=== PATIENT | male | born 1970 | race Caucasian/White ===

== ENCOUNTER 2017-01-16 06:55 | Day surgery (SDC) | payer OTHER ==
[~2017-01-16] VITALS: Ht 177.8 cm; Wt 131.5 kg
--- NOTE | 2017-01-16 10:36 | NUR ---
01/16/17 1035 Sarah Black 1028-PATIENT ARRIVED TO PACU ON 4L OM O2 SAT 96% AWAKE. SR. 1035-PATIENT AWAKE DENIES PAIN OR NAUSEA. DRESSING TO COCCYX CDI. DROWSY.
[2017-01-16] MEDS ORDERED: HYDROMORPHONE HC4 MG PO (10:40)
[2017-01-16] MEDS ORDERED: IBUPROFEN600 MG PO (10:40)
--- NOTE | 2017-01-16 11:05 | NUR ---
PT IS BACK TO DS FROM PACU. PT IS AWAKE AND TOLERATING SIPS OF WATER WELL. IS AT THE BEDSIE. CALL LIGHT WITHIN REACH. NO OTHER C/O'S AT THIS TIME. REQUESTING MORE WATER. WILL REASSESS WITHIN THE HOUR. PT EDUCATED ON CALLING FOR HELP SHOULD HE NEED TO USE THE RESTROOM.
--- NOTE | 2017-01-16 11:39 | NUR ---
PT IS UP OOB TO THE BATHROOM. STANDBY ASSIST, NO NAUSEA OR DIZZINESS.
--- NOTE | 2017-01-16 11:44 | NUR ---
PT REPORTS THAT HE WAS UNABLE TO URINATE. HE IS GIVEN MORE WATER. DENIES NEEDING ANYTHING TO EAT.
--- NOTE | 2017-01-20 08:06 | OR ---
[facility] [address] [place], [place] [address] Signed DATE OF OPERATION: 01/16/2017 SURGEON: Tiffanie Gore MD PREOPERATIVE DIAGNOSIS: Recurrent pilonidal abscess, chronic pain. POSTOPERATIVE DIAGNOSIS: Recurrent pilonidal abscess, chronic pain. PROCEDURE: Excision of pilonidal tissue with open packing. SURGEON: Tiffanie Gore MD ANESTHESIA: Saddle block with intravenous sedation. Deny Flores CRNA Local 30 mL 0.25% Marcaine with epinephrine. INDICATION: This 46-year-old white man, who underwent incision and drainage of a pilonidal abscess while in high school. Over the years, he has had episodes of pain in the internatal cleft consistent with persistent pilonidal disease. In recent months, he has had recurrent pain and occasions of draining particularly when sitting for prolonged periods for example on long drives. He was seen several months ago, and consideration was made for definitive treatment. 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 I saw him recently and he appears to have no sign of abscess or drainage at this time, but does have at least three distinct pilonidal sinuses in the internatal cleft. Various methods of management have been reviewed with him. I have recommended excision of the pilonidal tissue with complete removal of the disease and open packing as a treatment plan. The risks of bleeding, infection, recurrence and so forth were reviewed in detail. He understands and wished to proceed. FINDINGS: None of the sinuses were connected to an abscess at this time. All were excised Electronically Signed By: TIFFANIE GORE MD 01/20/17 0806 PATIENT NAME: SANTI DE GUZMAN OPERATIVE REPORT DATE OF : 68 PHYSICIAN: TIFFANIE GORE MD REPORT #: [id number] REPORT IS CONFIDENTIAL AND NOT TO BE RELEASED WITHOUT AUTHORIZATION [facility] [address] [place], [place] [address] Signed incontinuity with a minimizing of tissue excision in the internatal cleft. Open packing was undertaken with single ply gauze. DESCRIPTION OF PROCEDURE: The patient was brought to the operating room, after undergoing saddle block anesthetic in the preanesthesia area. Preoperative antibiotic, cefoxitin was given. He is placed in a prone ada-knife position and buttocks taped apart and the area prepared with a chlorhexidine solution and draped sterilely. Probing of the pilonidal sinuses did not show them to connect to an active abscess at this time. Minimizing excision with a 15 blade, elliptical excision was undertaken in the internatal cleft incorporating the three sinuses together. Dissection was carried through the dermis sharply and through the subcutaneous tissue similarly as deep as pilonidal tissue seemed to go. Once completely excised, hemostasis was assured with electrocautery. The wound was infiltrated with 30 mL of 0.25% Marcaine with epinephrine. Single ply gauze packing was applied. He was returned to the supine position and ultimately taken to recovery room in good condition. Blood loss was minimal. MD FLORENTINO Stark/OSEI /[id number] cc: Robbie Hunter DO Electronically Signed By: TIFFANIE GORE MD 01/20/17 0806 PATIENT NAME: SANTI DE GUZMAN OPERATIVE REPORT DATE OF : 68 PHYSICIAN: TIFFANIE GORE MD REPORT #: [id number] REPORT IS CONFIDENTIAL AND NOT TO BE RELEASED WITHOUT AUTHORIZATION
== END 2017-01-16 12:15 | disposition home or self-care (01) ==
LOC: DS 06:55
PROVIDERS: Surgery
PROC: 0HB8XZZ Excision of Buttock Skin, External Approach (ICD-10-PCS; principal; 2017-01-16 08:45)
DX: L05.01 Pilonidal cyst with abscess (principal); Z88.8 Allergy status to other drugs, medicaments and biological substances; Z90.89 Acquired absence of other organs; Z79.899 Other long term (current) drug therapy
CPT/HCPCS: 00300; J0694; J2250; J2704; J3010; J7120

== ENCOUNTER 2019-10-29 06:45 | Day surgery (SDC) | payer OTHER ==
[~2019-10-29] VITALS: Ht 177.8 cm; Wt 130.6 kg
[~2019-10-29 06:45] MED LIST: HYDROMORPHONE HC4 MG PO; IBUPROFEN600 MG PO
--- NOTE | 2019-10-29 08:46 | NUR ---
10/29/19 0846 Trudy Sow 0872 PATIENT ARRIVES TO PACU AWAKE AND TALKING, ANSWERS QUESTIONS APPROPRIATELY. RESP EVEN AND UNLABORED, NC AT 3 LITERS. DENIES PAIN OR NAUSEA. TAKING SIPS OF WATER.
--- NOTE | 2019-10-29 12:28 | NUR ---
PT ALERT ORIENTED AND HERE TO HAVE SCOPE BECAUSE OF FAMILY HISTORY. PREP WAS A CHALLENGE, PT HAS GOOD ATTITUDE. REQUESTED PRAYER, WILL FOLLOW
--- NOTE | 2019-11-02 12:12 | PATH ---
[facility] [address] [place], [place] [address] Signed SPECIMEN(S): A ILEOCECAL VALVE SPECIMEN(S): B TRANSVERSE POLYP SPECIMEN SOURCE: A. ILEOCECAL VALVE B. TRANSVERSE POLYP CLINICAL HISTORY: Family hx colon ca, hx hemorrhoids. MICROSCOPIC DESCRIPTION: Histologic sections of all submitted blocks are examined by light microscopy. These findings, together with the gross examination, support the pathologic diagnosis. FINAL PATHOLOGIC DIAGNOSIS: A. Colon, ileocecal valve, biopsy: - Fragments of ileal mucosa with focal minimal active inflammation. - Negative for ulcerations or granulomas. - Negative for dysplasia or malignancy. B. Colon, transverse, polyp, polypectomy: - Fragments of tubular adenoma. - Negative for high-grade dysplasia or malignancy. NAL:cml:C2NR GROSS DESCRIPTION: Two specimens are received in two containers, labeled "Earle, Santi." A. The specimen, labeled "Homajarett, Santi, 1," and designated on the requisition "ileocecal valve," is received in formalin and consists of three bassett soft tissue fragment(s) that measure 0.2-0.3 cm in greatest dimension. The specimen is entirely submitted in cassette (A1). B. The specimen, labeled "Earle, Santi, 2," and designated on the requisition "transverse polyp," is received in formalin and consists of four bassett soft tissue fragment(s) that measure 0.2-0.3 cm in greatest dimension. The specimen is entirely submitted in cassette (B1). FB (under the direct supervision of a pathologist) The Gross Description was prepared using a voice recognition system. The report was reviewed for accuracy; however, sound-alike word errors, addition and/or deletions may occur. If there is any question about this report, please contact Client Services. PERFORMING LABORATORY: PATIENT NAME: SANTI DE GUZMAN PATHOLOGY DATE OF : 68 REPORT #: [id number] PHYSICIAN: KAIDEN ALEXANDER PCP: KRYSTAL SANCHEZ PA-C REPORT IS CONFIDENTIAL AND NOT TO BE RELEASED WITHOUT AUTHORIZATION [facility] [address] [place], [place] [address] Signed The technical component was performed by [facility], [address] [place] [address] (Health Researcher: Gabbie Castro MD; CLIA# [id number]). Professional interpretation was performed by [facility], [address] [address] (CLIA# [id number]). Diagnostician: Laila Pena MD Pathologist Electronically Signed 11/02/2019 Copies: ~ PATIENT NAME: SANTI DE GUZMAN PATHOLOGY DATE OF : 68 REPORT #: [id number] PHYSICIAN: KAIDEN PATHOLOGY PCP: KRYSTAL SANCHEZ PA-C REPORT IS CONFIDENTIAL AND NOT TO BE RELEASED WITHOUT AUTHORIZATION
--- NOTE | 2019-11-02 18:28 | OR ---
[facility] [address] [place], [place] [address] Signed DATE OF OPERATION: 10/29/2019 SURGEON: Tiffanie Gore MD PREOPERATIVE DIAGNOSIS: Family history of colon cancer (father). POSTOPERATIVE DIAGNOSIS: Polyp of left transverse colon x1 and questionable adenomatous change of ileocecal valve. PROCEDURE: Total colonoscopy to cecum with biopsy of ileocecal valve and cold morcellation excision of polyp of left transverse colon. ANESTHESIA: Intravenous sedation, fentanyl 100 mcg and Versed 4 mg. INDICATIONS: This 49-year-old white man is a patient of Dr. Rangel previously, more recently Vanessa Alexis PA-C. He underwent colonoscopy in 2014, which was normal. He does have family history of colon cancer in his father, who of the disease. He is admitted at this time to undergo colonoscopy. He understands the risks of bleeding, infection, and perforation. FINDINGS: The prep was excellent. Complete colonoscopy was undertaken of the cecum. There was a small polyp of the left transverse colon, which was excised completely. The mucosa of the ileocecal valve appeared adenomatous without specific polypoid appearance. This was mostly biopsied to assess for adenomatous change. There were no other findings of concern. DESCRIPTION OF PROCEDURE: The patient was brought to the endoscopy suite and placed in lateral decubitus position, given intravenous sedation to the point of slurred speech and nystagmus. Digital rectal examination was normal. An Olympus video colonoscope was passed into the rectum and manipulated throughout the colon, ultimately intubating the cecum itself. Close inspection of the ileocecal valve showed a somewhat adenomatous-appearing mucosa; however, there was no specific adenoma proper. This was multiply biopsied. The scope was then withdrawn and remaining colon Electronically Signed By: TIFFANIE GORE MD 11/02/19 1828 PATIENT NAME: SANTI DE GUZMAN OPERATIVE REPORT DATE OF : 68 REPORT #: [id number] PHYSICIAN: TIFFANIE GORE MD PCP: VANESSA ALEXIS PA-C REPORT IS CONFIDENTIAL AND NOT TO BE RELEASED WITHOUT AUTHORIZATION [facility] [address] [place], [place] [address] Signed was examined, ultimately showing a small polyp in the left transverse colon. This was excised with cold morcellation technique. Further withdrawal of scope showed no other abnormality. Retroflexed view was normal. Scope was removed, then the patient was taken to the recovery room in good condition. CONCLUDING DIAGNOSIS: Small polyp, left transverse colon, questionable adenomatous change of ileocecal valve. PLAN: Recommend repeat colonoscopy in 5 years or sooner if symptoms should occur. If the ileocecal valve does show adenomatous change much sooner, colonoscopy would be advised. MD FLORENTINO Stark/OSEI /[id number] cc: DO Vanessa Vela PA-C Copies: YAMILETH RANGEL CHLOE K PA-C ~ Electronically Signed By: TIFFANIE GORE MD 11/02/19 1828 PATIENT NAME: SANTI DE GUZMAN OPERATIVE REPORT DATE OF : 68 REPORT #: [id number] PHYSICIAN: TIFFANIE GORE MD PCP: VANESSA ALEXIS PA-C REPORT IS CONFIDENTIAL AND NOT TO BE RELEASED WITHOUT AUTHORIZATION
== END 2019-10-29 09:15 | disposition home or self-care (01) ==
LOC: DS 06:45 → OPS 06:45 → DS 08:00 → OPS 09:15
PROVIDERS: Surgery
PROC: 0DBL8ZZ Excision of Transverse Colon, Via Natural or Artificial Opening Endoscopic (ICD-10-PCS; 2019-10-29)
PROC: 0DBC8ZX Excision of Ileocecal Valve, Via Natural or Artificial Opening Endoscopic, Diagnostic (ICD-10-PCS; principal; 2019-10-29 08:00)
DX: Z12.11 Encounter for screening for malignant neoplasm of colon (principal); D12.3 Benign neoplasm of transverse colon; K52.9 Noninfective gastroenteritis and colitis, unspecified; Z80.0 Family history of malignant neoplasm of digestive organs; Z88.5 Allergy status to narcotic agent
CPT/HCPCS: 99153; G0500; J2250; J3010; J7121

== ENCOUNTER 2024-10-25 06:20 | Day surgery (SDC) | payer OTHER ==
[~2024-10-25] VITALS: Ht 177.8 cm; Wt 125.4 kg
[~2024-10-25 06:20] MED LIST changes: +MIDAZOLAM HCL 5 MG/5 ML VIAL IV PRN; +fentaNYL citrate 100 MCG/2 ML VIAL IV PRN
[2024-10-25] MEDS ORDERED: BEET ROOT-TART1 EACH PO (06:34)
[2024-10-25] MEDS ORDERED: fentaNYL citrate 100 MCG/2 ML VIAL ONE (06:42)
[2024-10-25] MEDS ORDERED: MIDAZOLAM HCL 5 MG/5 ML VIAL ONE (06:42)
[2024-10-25 06:44] VITALS: BP 144/90
[2024-10-25] MEDS ORDERED: LACTATED RINGER'S 1,000 ML IV SCH (07:00)
[2024-10-25] MEDS ORDERED: IBLOOD GLUCOSE TEST STRIP 1 EA TEST VI PRN (07:00)
[2024-10-25] MEDS ORDERED: LIDOCAINE HCL 1% 5 ML SDV INJ ONE (07:00)
--- NOTE | 2024-10-25 08:17 | NUR ---
10/25/[address] PRESENTS TO THE BEDSIDE AND IS SPEAKING WITH PATIENT. PATIENT'S QUESTIONS ARE ANSWERED.
[2024-10-25 08:31] VITALS: BP 143/100
--- NOTE | 2024-10-26 11:33 | OR ---
[facility] [address] [place], [place] [address] Signed DATE OF OPERATION: 10/25/2024 SURGEON: Tiffanie Gore MD PREOPERATIVE DIAGNOSIS: Family history of colon cancer (father). POSTOPERATIVE DIAGNOSIS: Normal colon to cecum. PROCEDURE: Total colonoscopy to cecum. ANESTHESIA: Intravenous sedation, fentanyl 100 mcg, and Versed 5 mg. INDICATION: This 54-year-old white man is a patient Dr. Marla Flores. He has family history of colon cancer in his father who is now . His last colonoscopy was in 2019. He has no current symptoms of bleeding, diarrhea, or constipation. He is admitted at this time to undergo surveillance colonoscopy. He understands the risk of bleeding, infection, and perforation. FINDINGS: The prep was excellent. Complete colonoscopy was undertaken to the cecum with full intubation of the cecum. There was no evidence of polyps, diverticular formation, colitis, or cancer. DESCRIPTION OF PROCEDURE: The patient was brought to the endoscopy suite and placed in lateral decubitus position, given intravenous sedation to the point of slurred speech and nystagmus. Digital rectal examination was normal. An Olympus video colonoscope was passed in the rectum and manipulated throughout the colon ultimately intubating the cecum itself. The ileocecal valve and appendiceal orifice were normal. The scope was withdrawn from that point. Examination throughout showed no sign of abnormality specifically no polyps, diverticular formation, colitis, or cancer. Retroflexed view of the rectum was normal. The scope was removed. The patient was taken to the recovery room in good condition. Electronically Signed By: TIFFANIE GORE MD 10/26/24 1133 PATIENT NAME: SANTI DE GUZMAN OPERATIVE REPORT DATE OF : 68 REPORT #: [id number] PHYSICIAN: TIFFANIE GORE MD PCP: KRSYTAL SANCHEZ PA-C REPORT IS CONFIDENTIAL AND NOT TO BE RELEASED WITHOUT AUTHORIZATION [facility] [address] [facility] [place] [address] Signed CONCLUDING DIAGNOSIS: Normal colon to cecum. PLAN: Recommend repeat colonoscopy in 5 years, sooner if symptoms should develop. He will return to the ongoing care of Dr. Marla Flores. MD FLORENTINO Stark/OSEI /[id number] cc: Marla Flores MD Copies: MARLA FLORES DMD ~ Electronically Signed By: TIFFANIE GORE MD 10/26/24 1133 PATIENT NAME: SANTI DE GUZMAN OPERATIVE REPORT DATE OF : 68 REPORT #: [id number] PHYSICIAN: TIFFANIE GORE MD PCP: KRYSTAL SANCHEZ PA-C REPORT IS CONFIDENTIAL AND NOT TO BE RELEASED WITHOUT AUTHORIZATION
== END 2024-10-25 08:41 | disposition home or self-care (01) ==
LOC: DS 06:20
PROVIDERS: ATTEND Surgery
PROC: 0DJD8ZZ Inspection of Lower Intestinal Tract, Via Natural or Artificial Opening Endoscopic (ICD-10-PCS; principal; 2024-10-25 07:30)
DX: Z12.11 Encounter for screening for malignant neoplasm of colon (principal); E66.01 Morbid (severe) obesity due to excess calories; Z68.39 Body mass index [BMI] 39.0-39.9, adult; Z80.0 Family history of malignant neoplasm of digestive organs; Z88.5 Allergy status to narcotic agent
CPT/HCPCS: 99153; G0500; J2250; J3010